=== PATIENT | male | born 1980 | race Caucasian/White ===

== ENCOUNTER 2017-05-23 11:01 | Emergency (ER) | payer MEDICAID, OTHER ==
[~2017-05-23] VITALS: Ht 172.7 cm; Wt 81.8 kg
[~2017-05-23 11:01] MED LIST: MOTRIN; TYLENOL
[2017-05-23] MEDS ORDERED: IBUPROFEN 800 MG TABLET PO ONE (12:45)
[2017-05-23] MEDS ORDERED: IBUPROFEN 800 MG TABLET ONE (12:52)
[2017-05-23 13:51] VITALS: BP 124/80
== END 2017-05-23 14:07 | disposition home or self-care (01) ==
LOC: EMS 11:07
DX: S83.92XA Sprain of unspecified site of left knee, initial encounter (principal); S93.402A Sprain of unspecified ligament of left ankle, initial encounter; X58.XXXA Exposure to other specified factors, initial encounter; Y93.39 Activity, other involving climbing, rappelling and jumping off; Y92.828 Other wilderness area as the place of occurrence of the external cause; Y99.8 Other external cause status
CPT/HCPCS: 99284